=== PATIENT | female | born 1995 | race African-American/Black ===

== ENCOUNTER 2018-04-14 16:42 | Emergency (ER) | payer OTHER ==
[~2018-04-14] VITALS: Ht 160 cm; Wt 72.6 kg
[2018-04-14] MEDS ORDERED: REGLAN 10 MG TA10 MG PO (17:54)
[2018-04-14 18:12] VITALS: BP 103/61
== END 2018-04-14 18:13 | disposition home or self-care (01) ==
LOC: ER 16:42
DX: Z32.01 Encounter for pregnancy test, result positive (principal); R51 Headache; V89.2XXA Person injured in unspecified motor-vehicle accident, traffic, initial encounter; Y93.89 Activity, other specified; Y92.89 Other specified places as the place of occurrence of the external cause; Y99.8 Other external cause status

== ENCOUNTER 2018-05-12 13:22 | Emergency (ER) | payer OTHER ==
[~2018-05-12] VITALS: Ht 160 cm; Wt 79.4 kg
[~2018-05-12 13:22] MED LIST: REGLAN 10 MG TA10 MG PO
[2018-05-12 14:05] LABS: URINE BILIRUBIN NEGATIVE (Negative); URINE BLOOD NEGATIVE (Negative); URINE CLARITY CLEAR; URINE COLOR YELLOW; URINE GLUCOSE-RANDOM* NEGATIVE (Negative); URINE KETONES TRACE (Negative); URINE NITRITE-REFLEX NEGATIVE (Negative); URINE PROTEIN (DIPSTICK) NEGATIVE (Negative); URINE SPECIFIC GRAVITY 1.025 (1.005-1.035); URINE UROBILINOGEN 0.2 E.U./dl (0.2-1.0)
[2018-05-12 14:06] LABS: URINE LEUKOCYTES-REFLEX 1+ (Negative)
[2018-05-12 14:12] LABS: SQUAMOUS 4-10 Moderate /LPF (0-3)
[2018-05-12 14:13] LABS: BACTERIA-REFLEX 1-9 Few /HPF (None Seen); CASTS None Seen /LPF (None Seen); CRYSTALS None Seen /LPF (None Seen); MUCUS 4-6 Moderate strn/LPF (None Seen); URINE RBC None Seen /HPF (0-2)
[2018-05-12] MEDS ORDERED: KEFLEX500 M1 PO (16:26)
[2018-05-12 16:50] VITALS: BP 115/64
[2018-05-14 14:05] LABS: NEISSERIA GONORRHEA-PCR Negative (Negative)
== END 2018-05-12 16:53 | disposition home or self-care (01) ==
LOC: ER 13:22
PROVIDERS: Emergency Medicine
DX: O23.11 Infections of bladder in pregnancy, first trimester (principal); Z88.6 Allergy status to analgesic agent; Z3A.00 Weeks of gestation of pregnancy not specified